=== PATIENT | male | born 1975 | race African-American/Black ===

== ENCOUNTER 2016-10-02 08:17 | Emergency (ER) | payer MEDICAID, MEDICARE, SELFPAY ==
[~2016-10-02] VITALS: Ht 177.8 cm; Wt 117.9 kg
[2016-10-02 09:36] VITALS: BP 164/108
[2016-10-02] MEDS ORDERED: NAPR500T PO (09:40)
--- NOTE | 2016-10-02 09:57 | REP ---
THORACIC SPINE, FOUR VIEWS: HISTORY: Back pain. There is no acute fracture or subluxation. The intervertebral discs are normal in height. Osteophytes are present in the mid and lower thoracic spine. A tracheostomy tube is present. IMPRESSION: There is no acute fracture or subluxation. Signed by Chris Reed MD 10/02/2016 10:15 A
--- NOTE | 2016-10-02 10:19 | REP ---
LUMBAR SPINE, FIVE VIEWS: HISTORY: Back pain. There is no acute fracture or subluxation. The L4-5 and L5-S1 intervertebral discs are decreased in height consistent with disc degeneration. Osteophytes are present on L4-S1. The facet joints are normal in appearance. IMPRESSION: There is no acute fracture or subluxation. Signed by Chris Reed MD 10/02/2016 10:20 A
== END 2016-10-02 09:46 | disposition home or self-care (01) ==
LOC: M ED 09:05
DX: M51.36 Other intervertebral disc degeneration, lumbar region (principal); Z87.891 Personal history of nicotine dependence

== ENCOUNTER → 2018-03-11 | Outpatient (REF) | payer MEDICARE ==
[2018-03-11 12:48] LABS: BASO % 0.3 % (0.0-1.0); EOS # 0.3 10^3/uL (0.0-0.50); EOS % 3.1 % (0.0-3.0); HEMATOCRIT 46.9 % (42.0-52.0); HEMOGLOBIN 15.2 g/dl (13.5-17.5); IMMATURE GRANULOCYTE % 0.3 % (0-3.0); LYMPH # 1.8 10^3/uL (1.5-4.5); LYMPH % 22.4 % (24.0-44.0); MEAN CORPUSCULAR HEMOGLOBIN 27.5 pg (27.0-33.0); MEAN CORPUSCULAR HGB CONC 32.4 g/dl (32.0-36.5); MONO # 0.7 10^3/uL (0.0-0.8); MONO % 8.3 % (0.0-5.0); NEUTROPHILS # 5.2 10^3/uL (1.8-7.7); NEUTROPHILS % 65.6 % (36.0-66.0); PLATELET COUNT, AUTOMATED 243 10^3/uL (150-450); RED BLOOD COUNT 5.52 10^6/uL (4.30-6.10); RED CELL DISTRIBUTION WIDTH 14.8 % (11.5-14.5)
[2018-03-11 14:22] LABS: ALBUMIN 3.7 GM/DL (3.2-5.2); ALBUMIN/GLOBULIN RATIO 0.93 (1.00-1.93); ALKALINE PHOSPHATASE 135 U/L (45-117); ALT/SGPT 62 U/L (12-78); ANION GAP 9 MEQ/L (8-16); AST/SGOT 27 U/L (7-37); BILIRUBIN,TOTAL 0.7 MG/DL (0.2-1.0); BLOOD UREA NITROGEN 10 MG/DL (7-18); CALCIUM LEVEL 8.5 MG/DL (8.5-10.1); CARBON DIOXIDE LEVEL 24 MEQ/L (21-32); CHLORIDE LEVEL 108 MEQ/L (98-107); CHOLESTEROL LEVEL 208 MG/DL (<200); CHOLESTEROL RISK RATIO 3.409 (<5); CREATININE FOR GFR 0.87 MG/DL (0.70-1.30); GLOMERULAR FILTRATION RATE > 60.0 (>60); GLUCOSE, FASTING 90 MG/DL (70-100); HDL CHOLESTEROL 61 MG/DL (>40); LDL CHOLESTEROL 127.2 MG/DL (<100); NON-HDL-C 147 MG/DL; POTASSIUM SERUM 4.2 MEQ/L (3.5-5.1); SODIUM LEVEL 141 MEQ/L (136-145); TOTAL PROTEIN 7.7 GM/DL (6.4-8.2); TRIGLYCERIDES LEVEL 99 MG/DL (<150)
== END ==
LOC: M SFHCADAM 10:01
DX: E66.01 Morbid (severe) obesity due to excess calories (principal); Z68.41 Body mass index [BMI] 40.0-44.9, adult; I10 Essential (primary) hypertension
CPT/HCPCS: 84443

== ENCOUNTER 2019-07-05 09:49 | Emergency (ER) | payer MEDICARE ==
[~2019-07-05] VITALS: Ht 180.3 cm; Wt 134.3 kg
[2019-07-05 09:49] VITALS: BP 155/92
[~2019-07-05 09:49] MED LIST: NAPR-837 PO
[2019-07-05] MEDS ORDERED: LISI10TA4 (09:57)
[2019-07-05] MEDS ORDERED: STERSOL2 IR (10:17)
== END 2019-07-05 10:44 | disposition home or self-care (01) ==
LOC: M ED 09:49
DX: Z76.0 Encounter for issue of repeat prescription (principal); Z93.0 Tracheostomy status

== ENCOUNTER → 2021-01-03 | Outpatient (REF) | payer MEDICARE ==
[~2021-01-03] MED LIST changes: +LISI10TA22; +STERSOL2 IR
[2021-01-03 19:50] LABS: BASO % 0.4 % (0.0-1.0); EOS # 0.2 10^3/uL (0.0-0.5); EOS % 1.7 % (0.0-3.0); HEMATOCRIT 47.3 % (42.0-52.0); HEMOGLOBIN 14.9 g/dl (13.5-17.5); LYMPH # 2.1 10^3/uL (1.5-5.0); LYMPH % 21.5 % (24.0-44.0); MEAN CORPUSCULAR HEMOGLOBIN 27.2 pg (27.0-33.0); MEAN CORPUSCULAR HGB CONC 31.5 g/dl (32.0-36.5); MEAN CORPUSCULAR VOLUME 86.5 fl (80.0-96.0); MONO # 0.7 10^3/uL (0.0-0.8); MONO % 7.2 % (2.0-8.0); NEUTROPHILS # 6.7 10^3/uL (1.5-8.5); NEUTROPHILS % 68.9 % (36.0-66.0); PLATELET COUNT, AUTOMATED 308 10^3/uL (150-450); RED BLOOD COUNT 5.47 10^6/uL (4.30-6.10); WHITE BLOOD COUNT 9.8 10^3/uL (4.0-10.0)
[2021-01-03 20:14] LABS: ALBUMIN 4.3 GM/DL (3.2-5.2); ALT/SGPT 45 U/L (12-78); BILIRUBIN,TOTAL 0.8 MG/DL (0.2-1.0); BLOOD UREA NITROGEN 11 MG/DL (7-18); CALCIUM LEVEL 8.8 MG/DL (8.5-10.1); CARBON DIOXIDE LEVEL 27 MEQ/L (21-32); CHLORIDE LEVEL 109 MEQ/L (98-107); CHOLESTEROL LEVEL 176 MG/DL (<200); CHOLESTEROL RISK RATIO 3.142 (<5); CREATININE FOR GFR 0.84 MG/DL (0.70-1.30); GLOMERULAR FILTRATION RATE > 60.0 (>60); GLUCOSE, FASTING 66 MG/DL (70-100); HDL CHOLESTEROL 56 MG/DL (>40); LDL CHOLESTEROL 101 MG/DL (<100); NON-HDL-C 120 MG/DL; POTASSIUM SERUM 4.2 MEQ/L (3.5-5.1); SODIUM LEVEL 142 MEQ/L (136-145); TOTAL PROTEIN 7.7 GM/DL (6.4-8.2); TRIGLYCERIDES LEVEL 94 MG/DL (<150)
== END ==
LOC: M LAB REF 17:34
PROVIDERS: ATTEND Family Medicine Addiction Medicine
DX: I10 Essential (primary) hypertension (principal)

== ENCOUNTER 2022-12-18 11:39 | Emergency (ER) | payer MEDICARE ==
[~2022-12-18] VITALS: Ht 175.3 cm; Wt 106.4 kg
[2022-12-18 11:40] VITALS: BP 142/97
[2022-12-18] MEDS ORDERED: AMLO1TAB24 (11:48)
[2022-12-18] MEDS ORDERED: HYDR50TA70 PO (12:32)
== END 2022-12-18 12:46 | disposition home or self-care (01) ==
LOC: M ED 11:39
DX: G47.00 Insomnia, unspecified (principal); I10 Essential (primary) hypertension; M54.9 Dorsalgia, unspecified; F12.10 Cannabis abuse, uncomplicated

== ENCOUNTER 2023-02-27 17:36 | Emergency (ER) | payer MEDICARE ==
[~2023-02-27] VITALS: Ht 180.3 cm; Wt 105.8 kg
[2023-02-27 17:36] VITALS: BP 134/81; TEMP 98.1; O2SAT 98
[~2023-02-27 17:36] MED LIST changes: +AMLO1TAB24; +HYDR50TA70 PO
== END 2023-02-27 18:00 | disposition left against medical advice (07) ==
LOC: M ED 17:36
DX: Z53.21 Procedure and treatment not carried out due to patient leaving prior to being seen by health care provider (principal)

== ENCOUNTER 2023-03-04 16:55 | Day surgery (SDC) | payer MEDICARE ==
[~2023-03-04] VITALS: Ht 180.3 cm; Wt 105.0 kg
[2023-03-04 16:58] VITALS: TEMP 99.1
[2023-03-04] MEDS ORDERED: propofoL 200 MG/20 ML VIAL As Ordered ONE (17:42)
[2023-03-04] MEDS ORDERED: LIDOCAINE 2% 100MG/5ML SDV (FOR ANES.) As Ordered ONE (17:42)
[2023-03-04] MEDS ORDERED: MIDAZOLAM INJ 2MG/2ML VIAL As Ordered ONE ×2 (17:42→19:11)
[2023-03-04] MEDS ORDERED: fentaNYL 100 MCG/2 ML INJECTION As Ordered ONE (17:42)
[2023-03-04] MEDS ORDERED: SUCCINYLCHOLINE 100MG/5ML SYRINGE As Ordered ONE (17:43)
[2023-03-04] MEDS ORDERED: ONDANSETRON 4MG 2ML VIAL As Ordered ONE (17:44)
[2023-03-04 17:45] VITALS: BP 151/103; O2SAT 100
[2023-03-04] MEDS ORDERED: LIDOCAINE W/EPINEPHRINE 1% 20ML VIAL As Ordered ONE (17:49)
[2023-03-04] MEDS ORDERED: KETAMINE HCL 200MG/20ML VIAL As Ordered ONE (17:57)
[2023-03-04] MEDS ORDERED: MED REC IN PROGRESS XX SCH (18:00)
[2023-03-04] MEDS ORDERED: dexmedeTOMIDine (4MCG/ML)200MCG/50ML BTL (PRECEDEX) As Ordered ONE (18:08)
[2023-03-04] MEDS ORDERED: MED REC CURRENTLY UNOBTAINABLE XX SCH (18:30)
[2023-03-04 19:33] LABS: BLOOD UREA NITROGEN 15 MG/DL (9-23); CALCIUM LEVEL 9.2 MG/DL (8.5-10.1); CARBON DIOXIDE LEVEL 24 MMOL/L (20-31); CHLORIDE LEVEL 105 MMOL/L (98-107); CREATININE FOR GFR 0.85 MG/DL (0.70-1.30); GLOMERULAR FILTRATION RATE > 60.0 (>60); GLUCOSE, FASTING 190 MG/DL (60-100); SODIUM LEVEL 141 MMOL/L (136-145)
[2023-03-04 19:35] LABS: HEMATOCRIT 48.8 % (42.0-52.0); HEMOGLOBIN 15.2 g/dl (13.5-17.5); MEAN CORPUSCULAR HEMOGLOBIN 28.1 pg (27.0-33.0); MEAN CORPUSCULAR HGB CONC 31.1 g/dl (32.0-36.5); MEAN CORPUSCULAR VOLUME 90.2 fl (80.0-96.0); PLATELET COUNT, AUTOMATED 413 10^3/uL (150-450); RED BLOOD COUNT 5.41 10^6/uL (4.30-6.10); WHITE BLOOD COUNT 14.5 10^3/uL (4.0-10.0)
[2023-03-04 20:02] LABS: EOSINOPHILS 5 % (0-3); LYMPHOCYTES 42 % (16-44); MONOCYTES 6 % (0-5); NEUTROPHILS 47 % (28-66)
[2023-03-04 20:03] LABS: ANISOCYTOSIS 1+; HYPOCHROMASIA 1+; PLATELET ESTIMATE NORMAL (NORMAL)
== END 2023-03-04 19:41 | disposition home or self-care (01) ==
LOC: M ED 16:55 → M SDC 16:56
PROVIDERS: ATTEND Otolaryngology
DX: J95.09 Other tracheostomy complication (principal); J96.01 Acute respiratory failure with hypoxia; I10 Essential (primary) hypertension; F12.10 Cannabis abuse, uncomplicated; F41.9 Anxiety disorder, unspecified; Z79.899 Other long term (current) drug therapy
CPT/HCPCS: 71045; 80048; 85025; 87635; 93005; 99285; J2250